=== PATIENT | male | born 1965 | race American Indian/Alaskan Native ===

== ENCOUNTER 2020-08-07 20:57 | Emergency (ER) | payer SELFPAY ==
[2020-08-07 23:08] VITALS: BP 128/86
--- NOTE | 2020-08-07 23:55 | XRay Report ---
LEFT KNEE, 2 VIEWS INDICATION / CLINICAL INFORMATION: left knee pain. COMPARISON: None available. FINDINGS: Very mild degenerative changes are present, age appropriate. No fracture, malalignment, or other sign ificant finding. There may be very small suprapatellar joint effusion. IMPRESSION: Questionable very small suprapatellar joint effusion. Signer Name: Marleni Frederick MD Signed: 08/07/2020 11:51 PM Workstation Name: [id number]
--- NOTE | 2020-08-07 23:57 | XRay Report ---
LUMBAR SPINE, 3 VIEWS INDICATION / CLINICAL INFORMATION: lower back pain. COMPARISON: None available. FINDINGS: Mild multilevel degenerative disc disease is noted. Vertebral body heights are maintained. Prominent facet degenerative changes noted in the lower lumbar spine. No suggestion of fracture. IMPRESSION: Mild multilevel degenerative disc disease. Prominent facet degenerative change of the low er lumbar spine. Signer Name: Marleni Frederick MD Signed: 08/07/2020 11:53 PM Workstation Name: [id number]
--- NOTE | 2020-08-08 00:25 | XRay Report ---
RIGHT FOREARM, SINGLE VIEW INDICATION / CLINICAL INFORMATION: Right forearm pain. COMPARISON: None available. FINDINGS: Only single view requested. For single view, no obvious fracture or malalignment. No foreign objects are noted within the visuali zed soft tissues. Signer Name: Marleni Frederick MD Signed: 08/08/2020 12:20 AM Workstation Name: [id number]
[2020-08-08] MEDS ORDERED: HYDROcodone/ACETAMINOPHEN 5-325 MG TAB PO ONE (01:32)
[2020-08-08] MEDS ORDERED: ONDANSETRON 4 MG ODT TAB PO ONE (01:32)
[2020-08-08] MEDS ORDERED: IBUPROFEN 600 MG TAB PO ONE (01:32)
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
== END 2020-08-08 02:44 | disposition home or self-care (01) ==
LOC: ED 20:57
DX: S83.92XA Sprain of unspecified site of left knee, initial encounter (principal); S50.11XA Contusion of right forearm, initial encounter; M62.830 Muscle spasm of back; V89.2XXA Person injured in unspecified motor-vehicle accident, traffic, initial encounter; Y93.89 Activity, other specified; Y92.410 Unspecified street and highway as the place of occurrence of the external cause; Y99.8 Other external cause status
CPT/HCPCS: 72100; Q0162